=== PATIENT | female | born 1985 ===

== ENCOUNTER → 2021-10-02 | Outpatient (CLI) | payer BC ==
[2021-10-02 11:42] VITALS: BP 122/88; PULSE 87; RESP 17; TEMP 98.1
--- NOTE | 2021-10-02 12:07 | P.GSHP ---
History of Present Illness H&P Date: 10/02/21 Chief Complaint: mass right breast times two Greyder is a 36 year old [place] female status post right breast ultrasound showing two masses in the right bresat. She is seen in consultation for Dr. Garza. Patient had a bilateral mammogram performed on fresh 182 w hich led to the right breast ultrasound. On the right breast ultrasound at 1:00 a 1.5 cm lesion was identified as well as a 2 cm lesion at the 12 o'clock position. The patient herself does not feel any lumps masses or nodules of concern in either breast. She has had left breast biopsy and surgical resection in 2018, in [place] and the findings were benign. Is not complaining of any nipple discharge or skin changes. She is not complaining of any trauma or infection in the breast. Caffeine: 2 cups coffee/day nicotine: none hormones: none chocolate: daily Family History: none Hormonal history: Menarche: 11 G0 periods regular, LMP: two weeks ago BCP: at 23 for 1 years hormones: none Surgical history: left breast biopsy jaw surgery (maxilofacial surgery for length descrepency) Medical History: Hypothyroid Social history: Alcohol: Negative Nicotine: Negative Drugs: Negative - Constitutional Constitutional: Denies chills, Denies fever - EENT Eyes: denies blurred vision, denies pain Ears: deny: decreased hearing, tinnitus Ears, nose, mouth and throat: Denies headache, Denies sore throat - Breasts Breasts: bilateral: as per HPI - Cardiovascular Cardiovascular: Denies chest pain, Denies shortness of breath - Respiratory Respiratory: Denies cough, Denies 7 - Genitourinary (Female) Genitourinary: Denies dysuria, Denies hematuria - Menstruation Menstruation: Reports period normal - Musculoskeletal Musculoskeletal: Denies myalgias - Integumentary Integumentary: Denies pruritus, Denies rash - Neurological Neurological: Denies numbness, Denies weakness - Psychiatric Psychiatric: Denies anxiety, Denies depression - Endocrine Comment: enlarged thyroid - Hematologic/Lymphatic Comment: none - Allergic/Immunologic Allergic/Immunologic: Reports as per HPI Past Medical History Past Medical History: Thyroid Disorder History of Any Multi-Drug Resistant Organisms: None Reported Additional Past Surgical History / Comment(s): Left breast biopsy. Reconstructive surgery on jaw 2003 Past Anesthesia/Blood Transfusion Reactions: No Reported Reaction Past Psychological History: No Psychological Hx Reported Smoking Status: Never smoker Past Alcohol Use History: None Reported Past Drug Use History: None Reported Medications and Allergies Home Medications Medication Instructions Recorded Confirmed Type Levothyroxine Sodium [Synthroid] 25 mcg PO DAILY 09/08/21 10/02/21 History Allergies Allergy/AdvReac Type Severity Reaction Status Date / Time No Known Allergies Allergy Verified 10/02/21 11:39 Surgical - Exam Vital Signs Temp Pulse Resp BP Pulse Ox 98.1 F 87 17 122/88 98 10/02/21 11:39 10/02/21 11:39 10/02/21 11:39 10/02/21 11:39 10/02/21 11:39 BMI: 27.3 - General well developed, well nourished, no distress - Eyes normal ocular movement - ENT no hearing loss, no congestion - Neck trachea midline - Respiratory normal respiratory effort, clear to auscultation - Cardiovascular Rhythm: regular Heart Sounds: normal: S1, S2 - Abdomen Abdomen: soft, non tender, no guarding, no rigid, no rebound - Integumentary normal turgor - Neurologic no disoriented, no combative - Musculoskeletal normal gait, normal posture - Psychiatric oriented to time, oriented to person, oriented to place, speech is normal, memory intact Breast Exam: BRA: 34D Inspection: Well-healed scar left breast from prior surgery, bilateral grade 2 ptosis Palpation: Right breast: Multi-positional exam fibrocystic changes, approximately 2 cm area of nodularity at 12:00 Right axilla: Shoddy adenopathy Left breast: Multi-positional exam fibrocystic changes no dominant masses or nodules of concern Left axilla: Shoddy adenopathy Results Mammogram and ultrasound results reviewed Assessment and Plan Assessment: Impression: Palpable abnormality right breast consistent with 12:00 finding on the ultrasound, 1:00 lesion not palpated Fibrocystic breast changes Hypothyroid Plan: Ultrasound core biopsy lesion of concern right breast Follow-up after ultrasound-guided core biopsy Cc: Dr. Garza
== END | disposition home or self-care (01) ==
LOC: WWCWWP 11:37
PROVIDERS: ATTEND Surgery
DX: Z53.9 Procedure and treatment not carried out, unspecified reason (principal)

== ENCOUNTER → 2021-10-02 | Day surgery (SDC) | payer BC ==
--- NOTE | 2021-10-09 09:49 | MM ---
Reason for Exam: Post Procedure Mammogram. Last screening mammogram was performed 3 month(s) ago. Indicated Problems: Other indicated problem of the right side : POST US CORE. Patient History: Premenopausal. Risk Values: Summer 5 year model risk: 0.3%. NCI Lifetime model risk: 6.8%. Prior Study Comparison: 07/14/2021 Bilateral MG 3D screening mammo w/cad, [facility]. Tissue Density: Right: The breast tissue is heterogeneously dense. This may lower the sensitivity of mammography. Pathology Description: Location: 1 o'clock. Marker Left Behind. Needle Type: Mammotome Cores: 6 Gauge: 13 The procedure of ultrasound guided core biopsy was explained to the patient. Benefits, alternatives, and risks were discussed. An informed consent was then obtained. The patient was placed in supine positioning for imaging and for the procedure. The overlying skin was prepped and draped in usual sterile fashion. Lidocaine was used as anesthetic into the skin and subcutaneous tissue up to area of concern in the right breast. The lobulated 1.7 x 1.3 x 0.7 cm hypoechoic lesion at the 1:00 position was targeted for biopsy. This was the patient's palpable lesion. The other larger mass at 12:00 shows a biopsy clip from prior sampling. Under ultrasound guidance, a 13-gauge vacuum-assisted mammotome biopsy gun was used to obtain 6 core samples. Following this, a spiral Hydromark clip was left in lesion. The patient tolerated the procedure well without any immediate complication. The patient was kept in the radiology department for short stay after the procedure and then discharged home in stable condition. Postbiopsy mammogram shows clip in position. The 2 other clips from prior biopsies are also noted. Impression: Successful, uncomplicated ultrasound guided core biopsy of the palpable 1.7 x 1.3 x 0.7 cm 1:00 right breast lesion. Full pathology results to follow. Pathology Results: Result: Benign, Fibroadenoma. RIGHT BREAST, 1:00, ULTRASOUND GUIDED CORE BIOPSY: Fibroadenoma. Overall Assessment: Benign Assessment: MG diagnostic mammo RT wo CAD - Right: Benign, BI-RAD 2. Management: Diagnostic Mammogram of the right breast in 6 months. Electronically signed and approved by: Maximino Crump M.D. Radiologist
== END ==
LOC: RADUSWWP 11:20
PROVIDERS: ATTEND Surgery
DX: D24.1 Benign neoplasm of right breast (principal); R92.8 Other abnormal and inconclusive findings on diagnostic imaging of breast
CPT/HCPCS: 88305; 77065; 19083; A4648

== ENCOUNTER → 2021-10-20 | Outpatient (CLI) | payer BC ==
[2021-10-20 08:51] VITALS: BP 131/89; PULSE 72; RESP 17; TEMP 98.1
--- NOTE | 2021-10-20 09:42 | P.PN ---
Subjective Progress Note Date: 10/20/21 Chantell is a 36 year old Syrian female status post right breast ultrasound showing two masses in the right bresat. She is seen in consultation for Dr. Garza. Patient had a bilateral mammogram performed on fresh 1821 which led to the right breast ultrasound. On the right breast ultrasound at 1:00 a 1.5 cm lesion was identified as well as a 2 cm lesion at the 12 o'clock position. The patient herself does not feel any lumps masses or nodules of concern in either breast. She has had left breast biopsy and surgical resection in 2018, in [place] and the findings were benign. Is not complaining of any nipple discharge or skin changes. She is not complaining of any trauma or infection in the breast. 10-20-21 The patient had a core biopsy of the 1:00 lesion of hte right breast on 10-02-21. Pathology was consistant with a fibroadenoma. She tolerated the biopsy without difficulty. At this time the lesion is not symptomatic for her, and she would like to be followed conservatively. Caffeine: 2 cups coffee/day nicotine: none hormones: none chocolate: daily Family History: none Hormonal history: Menarche: 11 G0 periods regular, LMP: two weeks ago BCP: at 23 for 1 years hormones: none Surgical history: left breast biopsy jaw surgery (maxilofacial surgery for length descrepency) Medical History: Hypothyroid Social history: Alcohol: Negative Nicotine: Negative Drugs: Negative - Constitutional Constitutional: Denies chills, Denies fever - EENT Eyes: denies blurred vision, denies pain Ears: deny: decreased hearing, tinnitus Ears, nose, mouth and throat: Denies headache, Denies sore throat - Breasts Breasts: bilateral: as per HPI - Cardiovascular Cardiovascular: Denies chest pain, Denies shortness of breath - Respiratory Respiratory: Denies cough - Genitourinary (Female) Genitourinary: Denies dysuria, Denies hematuria - Menstruation Menstruation: Reports period normal - Musculoskeletal Musculoskeletal: Denies myalgias - Integumentary Integumentary: Denies pruritus, Denies rash - Neurological Neurological: Denies numbness, Denies weakness - Psychiatric Psychiatric: Denies anxiety, Denies depression - Endocrine Comment: enlarged thyroid - Hematologic/Lymphatic Comment: none - Allergic/Immunologic Allergic/Immunologic: Reports as per HPI Objective - Vital Signs Vital signs: Vital Signs Temp 98.1 F 10/20/21 08:49 Pulse 72 10/20/21 08:49 Resp 17 10/20/21 08:49 BP 131/89 10/20/21 08:49 Pulse Ox 100 10/20/21 08:49 FiO2 Intake & Output 10/19/21 10/20/21 10/20/21 18:59 06:59 18:59 Weight 78.471 kg - Constitutional General appearance: Present: cooperative - EENT Eyes: Present: EOMI ENT: Present: hearing grossly normal - Neck Neck: Present: normal ROM - Respiratory Respiratory: bilateral: CTA - Cardiovascular Rhythm: regular Heart sounds: normal: S1, S2 - Integumentary Integumentary Comment(s): Biopsy site right breast clean and dry Integumentary: Present: normal turgor - Musculoskeletal Musculoskeletal: Present: gait normal - Psychiatric Psychiatric: Present: A&O x's 3, appropriate affect, intact judgment & insight Assessment and Plan Assessment: Impression: Asymptomatic fibroadenoma right breast There were 2 sites noted on ultrasound both have been sampled and both benign; blunt site was sampled previously in [place] and she was told this was a fibroadenoma as well. Requesting that report Plan: Right breast ultrasound in 6 months with physician exam at that time At this time the lesions are asymptomatic and the patient would like to be followed conservatively. We have discussed resection however in view of the fact that these are fibroadenomas and nonmalignant she would like to wait. If these began to grow or become symptomatic and resection may be recommended. CC: Dr. Sha Husain
== END ==
LOC: WWCWWP 08:43
PROVIDERS: ATTEND Surgery
DX: N60.11 Diffuse cystic mastopathy of right breast (principal); E03.9 Hypothyroidism, unspecified